=== PATIENT | female | born 1985 | race Caucasian/White ===

== ENCOUNTER 2017-05-17 03:21 | Emergency (ER) | payer OTHER ==
[~2017-05-17] VITALS: Ht 149.9 cm; Wt 53.2 kg
[2017-05-17 03:30] VITALS: BP 106/78
== END 2017-05-17 05:36 | disposition home or self-care (01) ==
LOC: ER 03:21
DX: K08.89 Other specified disorders of teeth and supporting structures (principal); R51 Headache; Z98.890 Other specified postprocedural states
CPT/HCPCS: 99283